=== PATIENT | male | born 1995 | race Caucasian/White ===

== ENCOUNTER 2018-02-24 12:46 | Inpatient (IN) | payer MEDICAID ==
[2018-02-24 13:16] LABS: PLATELET COUNT 211 10^3/uL (150-400)
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
[2018-02-24] MEDS ORDERED: LORazepam 0.5 MG TAB PO PRN (20:47)
[2018-02-24] MEDS ORDERED: MAGNESIUM HYDROXIDE 30 ML UDCUP PO PRN (20:47)
[2018-02-24] MEDS ORDERED: ACETAMINOPHEN 325 MG TAB PO PRN (20:47)
[2018-02-24] MEDS ORDERED: MAG HYDROX/AL HYDROX/SIMETH 30 ML UDCUP PO PRN (20:47)
[2018-02-24] MEDS ORDERED: OLANZapine 5 MG TAB PO PRN (20:48)
[2018-02-24] MEDS ORDERED: MELATONIN 3 MG TAB PO PRN (20:49)
[2018-02-24] MEDS: NICOTINE POLACRILEX 2 MG GUM B PRN (21:26)
[2018-02-25] MEDS: NICOTINE POLACRILEX 2 MG GUM B PRN ×2 (12:02→15:49)
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
[2018-02-25] MEDS: RISPERIDONE 1 MG ODT TAB SL SCH (20:10)
[2018-02-26 06:12] VITALS: BP 109/64
[2018-02-26] MEDS: NICOTINE POLACRILEX 2 MG GUM B PRN (12:17)
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
[2018-02-26] MEDS: RISPERIDONE 1 MG ODT TAB SL SCH (20:02)
[2018-02-27] MEDS: NICOTINE POLACRILEX 2 MG GUM B PRN ×3 (09:29→19:06)
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
[2018-02-27] MEDS: RISPERIDONE 1 MG ODT TAB SL SCH (20:16)
[2018-02-28] MEDS: NICOTINE POLACRILEX 2 MG GUM B PRN (08:36)
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
[2018-02-28] MEDS: RISPERIDONE 1 MG ODT TAB SL SCH (20:38)
[2018-03-01] MEDS: NICOTINE POLACRILEX 2 MG GUM B PRN ×2 (13:29→19:00)
[2018-03-01] MEDS: RISPERIDONE 1 MG ODT TAB SL SCH (20:37)
[2018-03-03] MEDS: RISPERIDONE 1 MG ODT TAB SL SCH ×2 (08:04→20:54)
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
--- NOTE | 2018-03-03 16:33 | SOAPPROG ---
SOAP Progress Note Assessment/Plan: Assessment: Plan: 03/03/18 16:32 Psychosis: Not improving. I have petitioned for COM. Will begin E-meds due to level of hostility and high potential for escalation and aggression. Pt is clearly gravely disabled as he is not aware of the nature or severity of his illness and is unable to consent for medications. He has placed others including myself in reasonable fear of harm. Subjective: LATE ENTRY FOR 03/01/18. THIS NOTE WAS PREVIOUSLY ENTERED INTO THE RECORD BUT WAS ERASED BY EMR MALFUNCTION. NOTE FOR 03/02/18 WAS HAND TYPED AND PHYSICAL COPY PLACED IN PAPER CHART. Pt seen, discussed with staff. Continues to avoid staff and fellow patients. Guarded and hostile when interacting with staff or myself. Unwilling to discuss treatment or medications with me today. Puts his fingers in his ears when I try to anyway. Hostility and volatility has placed others in reasonable fear of harm. Objective: Vital Signs Temp Pulse Resp BP Pulse Ox 36.3 C 78 14 109/64 98 02/26/18 06:00 02/26/18 06:00 02/26/18 06:00 02/26/18 06:00 02/26/18 06:00 MSE: Disheveled, guarded, hostile. Affect is constricted, angry. Mood is not stated. TP appears disorganized. Appears to respond to internal stimuli. - Time Spent With Patient Time Spent With Patient: 15" ICD10 Worksheet Patient Problems: Problems Problem Status Onset Psychosis Acute
[2018-03-03] MEDS ORDERED: HALOPERIDOL LACT 5 MG/ML INJ IM PRN (16:36)
[2018-03-03] MEDS ORDERED: LORazepam 2 MG/ML INJ IM PRN (16:36)
--- NOTE | 2018-03-03 16:36 | SOAPPROG ---
SOAP Progress Note Assessment/Plan: Assessment: Plan: 03/03/18 16:32 Psychosis: Not improving. I have petitioned for COM. Will begin E-meds due to level of hostility and high potential for escalation and aggression. Pt is clearly gravely disabled as he is not aware of the nature or severity of his illness and is unable to consent for medications. He has placed others including myself in reasonable fear of harm. 03/03/18 16:35 Psychosis: Remains severely ill. CC received report from pt's mother that he was previously on COM in [place] prior to fleeing the state. Will reorder E-meds today. Subjective: Pt seen, discussed with staff. Remains hostile and guarded. E-med order erased by JAIME jordan yesterday. Will reenter it today. Pt remains unwilling to discuss treatment inc: meds. He remains paranoid, internally focused and hostile in the milieu. Objective: Vital Signs Temp Pulse Resp BP Pulse Ox 36.3 C 78 14 109/64 98 02/26/18 06:00 02/26/18 06:00 02/26/18 06:00 02/26/18 06:00 02/26/18 06:00 - Time Spent With Patient Time Spent With Patient: 15" ICD10 Worksheet Patient Problems: Problems Problem Status Onset Psychosis Acute
[2018-03-03] MEDS: NICOTINE POLACRILEX 2 MG GUM B PRN (22:54)
[2018-03-04] MEDS: NICOTINE POLACRILEX 2 MG GUM B PRN ×3 (08:11→14:12)
[2018-03-04] MEDS ORDERED: HALOPERIDOL 5 MG TAB PO ONE (13:47)
[2018-03-04] MEDS ORDERED: LORazepam 1 MG TAB PO ONE (13:48)
[2018-03-04] MEDS ORDERED: diphenhydrAMINE 50 MG CAP PO ONE (13:48)
[2018-03-04] MEDS ORDERED: diphenhydrAMINE 25 MG CAP PO ONE (13:49)
[2018-03-04] MEDS ORDERED: LORazepam 1 MG TAB ONE (13:50)
--- NOTE | 2018-03-04 14:21 | ASMTBHDC ---
Notes Note: Notes: CC speaks with Valarie (client's case planner) at [phone]; cell: [phone] regarding client's current condition as well as confirming that we received her fax of his most recent medications, etc. CC noted that we did received her fax as well as supply any update on client's progress/lack of progress, etc. Valarie noted that "our doctor (client's doctor) here would like to speak to the attending doctor for client for coordination of care, etc." Spoke to client's doctor with [facility] and he agreed. CC provided Valarie with doctor's phone number, etc. CC will work with Valarie to help coordination client's return to [place], etc. CC provided all necessary contact information including email. CC requested clinet's PO name and number if available, etc. Waiting on a response. Client affect today labile and loud. Emergency meds ordered due to his disruptive behaviors, etc. Date Signed: 03/04/2018 02:20 PM Electronically Signed By:Kadeem Winchester
--- NOTE | 2018-03-04 16:29 | SOAPPROG ---
SOAP Progress Note Assessment/Plan: Assessment: Plan: 03/03/18 16:32 Psychosis: Not improving. I have petitioned for COM. Will begin E-meds due to level of hostility and high potential for escalation and aggression. Pt is clearly gravely disabled as he is not aware of the nature or severity of his illness and is unable to consent for medications. He has placed others including myself in reasonable fear of harm. 03/03/18 16:35 Psychosis: Remains severely ill. CC received report from pt's mother that he was previously on COM in [place] prior to fleeing the state. Will reorder E-meds today. 03/04/18 16:29 Psychosis: No change. Took one dose of Risperdal. Await COM hearing. Subjective: Pt seen, discussed with staff. Took Risperdal last night with E-med backup. He continues to refuse to talk to me accusing me of lying to him. Remains internally preoccupied, impulsive, irritable/hostile, paranoid. Good collateral information from treatment center in [place] re: previous court ordered treatments. Objective: Vital Signs Temp Pulse Resp BP Pulse Ox 36.3 C 78 14 109/64 98 02/26/18 06:00 02/26/18 06:00 02/26/18 06:00 02/26/18 06:00 02/26/18 06:00 - Time Spent With Patient Time Spent With Patient: 15" ICD10 Worksheet Patient Problems: Problems Problem Status Onset Psychosis Acute
[2018-03-04] MEDS: NICOTINE 14 MG/24 HR PATCH TD SCH (17:07)
[2018-03-04] MEDS: RISPERIDONE 1 MG ODT TAB SL SCH (19:57)
[2018-03-05] MEDS: NICOTINE 14 MG/24 HR PATCH TD SCH (08:39)
[2018-03-05] MEDS ORDERED: LORazepam 2 MG/ML INJ IM PRN (10:49)
[2018-03-05] MEDS ORDERED: HALOPERIDOL LACT 5 MG/ML INJ IM PRN ×2 (10:49)
[2018-03-05] MEDS ORDERED: LORazepam 1 MG TAB PO PRN (10:49)
[2018-03-05] MEDS ORDERED: HALOPERIDOL 10 MG TAB PO PRN (10:49)
[2018-03-05] MEDS ORDERED: diphenhydrAMINE 50 MG CAP PO PRN (10:57)
--- NOTE | 2018-03-05 17:46 | SOAPPROG ---
SOAP Progress Note Assessment/Plan: Assessment: Plan: 03/03/18 16:32 Psychosis: Not improving. I have petitioned for COM. Will begin E-meds due to level of hostility and high potential for escalation and aggression. Pt is clearly gravely disabled as he is not aware of the nature or severity of his illness and is unable to consent for medications. He has placed others including myself in reasonable fear of harm. 03/03/18 16:35 Psychosis: Remains severely ill. CC received report from pt's mother that he was previously on COM in [place] prior to fleeing the state. Will reorder E-meds today. 03/04/18 16:29 Psychosis: No change. Took one dose of Risperdal. Await COM hearing. 03/05/18 17:46 Psychosis: Remains psychotic, labile, isolating. I/J remain very poor, though compliant with meds in this setting. Will CCM, await COM hearing. Subjective: Pt seen, discussed with staff. Isolating in his room, unwilling to discuss treatment. Offers no c/o's. Compliant with meds. Objective: Vital Signs Temp Pulse Resp BP Pulse Ox 36.3 C 78 14 109/64 98 02/26/18 06:00 02/26/18 06:00 02/26/18 06:00 02/26/18 06:00 02/26/18 06:00 MSE: Poorly groomed, guarded, uncoop. Affect is currently neutral though remains labile. Mood is not described. TP is disorganized. TC reveals paranoid thoughts that the staff including myself are lying to him and "against " him. - Time Spent With Patient Time Spent With Patient: 15" ICD10 Worksheet Patient Problems: Problems Problem Status Onset Psychosis Acute
[2018-03-05] MEDS: NICOTINE POLACRILEX 2 MG GUM B PRN (19:32)
[2018-03-05] MEDS: RISPERIDONE 2 MG ODT TAB SL SCH (20:47)
[2018-03-06] MEDS: NICOTINE 14 MG/24 HR PATCH TD SCH (13:16)
[2018-03-06] MEDS: NICOTINE POLACRILEX 2 MG GUM B PRN (13:16)
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
[2018-03-06] MEDS: RISPERIDONE 2 MG ODT TAB SL SCH (19:52)
[2018-03-07] MEDS: NICOTINE 14 MG/24 HR PATCH TD SCH (09:46)
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
[2018-03-07] MEDS: NICOTINE POLACRILEX 2 MG GUM B PRN ×3 (14:50→19:11)
--- NOTE | 2018-03-07 15:02 | ASMTBHDC ---
Notes Note: Notes: Patient is spending most of the day in his room in bed. He is taking his medications and he is not going to groups. He slept 6 hours last night. He is not engaging with others. Date Signed: 03/07/2018 03:02 PM Electronically Signed By:Bettie Cool
[2018-03-07] MEDS: RISPERIDONE 2 MG ODT TAB SL SCH (20:14)
[2018-03-08] MEDS: NICOTINE 14 MG/24 HR PATCH TD SCH (11:35)
--- NOTE | 2018-03-08 16:51 | SOAPPROG ---
SOAP Progress Note Assessment/Plan: Assessment: Plan: 03/03/18 16:32 Psychosis: Not improving. I have petitioned for COM. Will begin E-meds due to level of hostility and high potential for escalation and aggression. Pt is clearly gravely disabled as he is not aware of the nature or severity of his illness and is unable to consent for medications. He has placed others including myself in reasonable fear of harm. 03/03/18 16:35 Psychosis: Remains severely ill. CC received report from pt's mother that he was previously on COM in [place] prior to fleeing the state. Will reorder E-meds today. 03/04/18 16:29 Psychosis: No change. Took one dose of Risperdal. Await COM hearing. 03/05/18 17:46 Psychosis: Remains psychotic, labile, isolating. I/J remain very poor, though compliant with meds in this setting. Will CCM, await COM hearing. 03/08/18 16:50 Psychosis: Improving with Risperdal. Will increase to 3mg, monitor. Continue ISB precautions, though may be able to life AP as he has not exhibited aggression. Continue d/c planning. Subjective: Pt seen, discussed with staff. Reports feeling "a lot better." Engaging and able to carry on a conversation about treatment and d/c plans. He struggles at times with internal distraction/derailment. He continues to state he wants to go to [place] after d/c. Events of WE noted inc: sexually inappropriate statements. Discussed this with patient and he demonstrates minimal insight though states he will "stop that." Objective: Vital Signs Temp Pulse Resp BP Pulse Ox 36.3 C 78 14 109/64 98 02/26/18 06:00 02/26/18 06:00 02/26/18 06:00 02/26/18 06:00 02/26/18 06:00 MSE: out in milieu watching TV. Activity is normal, speech is soft, slow, delayed. Affect is blunted, stable. Mood is "good." TP is generally linear, though he continues to derail. He will refocus if interrupted. TC reveals no mention of paranoid thoughts. - Time Spent With Patient Time Spent With Patient: 25" ICD10 Worksheet Patient Problems: Problems Problem Status Onset Psychosis Acute
[2018-03-08] MEDS: NICOTINE POLACRILEX 2 MG GUM B PRN ×2 (18:15→21:20)
[2018-03-08] MEDS: RISPERIDONE 2 MG ODT TAB SL SCH (21:07)
[2018-03-09] MEDS: NICOTINE 14 MG/24 HR PATCH TD SCH (08:45)
[2018-03-09] MEDS: NICOTINE POLACRILEX 2 MG GUM B PRN ×4 (14:52→21:00)
--- NOTE | 2018-03-09 15:09 | SOAPPROG ---
SOAP Progress Note Assessment/Plan: Assessment: Plan: 03/03/18 16:32 Psychosis: Not improving. I have petitioned for COM. Will begin E-meds due to level of hostility and high potential for escalation and aggression. Pt is clearly gravely disabled as he is not aware of the nature or severity of his illness and is unable to consent for medications. He has placed others including myself in reasonable fear of harm. 03/03/18 16:35 Psychosis: Remains severely ill. CC received report from pt's mother that he was previously on COM in [place] prior to fleeing the state. Will reorder E-meds today. 03/04/18 16:29 Psychosis: No change. Took one dose of Risperdal. Await COM hearing. 03/05/18 17:46 Psychosis: Remains psychotic, labile, isolating. I/J remain very poor, though compliant with meds in this setting. Will CCM, await COM hearing. 03/08/18 16:50 Psychosis: Improving with Risperdal. Will increase to 3mg, monitor. Continue ISB precautions, though may be able to life AP as he has not exhibited aggression. Continue d/c planning. 03/09/18 15:08 Psychosis: Unchanged. CCM. Continue d/c planning. Subjective: Pt seen, discussed with staff. Continues to struggle with clarity of thoughts/ disorganization. He is motivated to leave the hospital but continues to insist he has a place to live in [place] while his family insists he has never been there before. CC is working to clarify this. Remains generally hypersexual, though bx's are in control. Objective: Vital Signs Temp Pulse Resp BP Pulse Ox 36.3 C 78 14 109/64 98 02/26/18 06:00 02/26/18 06:00 02/26/18 06:00 02/26/18 06:00 02/26/18 06:00 MSE: Calm, almost sedate. Affect is blunted, stable. Mood is "good." TP generally linear. TC reveals grandiose and paranoid thoughts, RIS. - Time Spent With Patient Time Spent With Patient: 15" ICD10 Worksheet Patient Problems: Problems Problem Status Onset Psychosis Acute
--- NOTE | 2018-03-09 15:35 | ASMTBHDC ---
Notes Note: Notes: GINA spoke with Darling from [facility] ([id number]#[phone], F#[phone]); she requested written documentation of the patient's stay in the hospital for her records. She reported that a warrant for the patient's arrest had been put in place because he was not supposed to leave [place] without permission from the court. She stated that his offense was currently not extraditable. GINA also spoke with the patient's mother, Jessica, updating her per the discharge plan. The patient is requesting to be discharged to a homeless custodial. He is refusing to return to [place]. He would like to go to [place] and is unable to confirm an friend, family member, phone number, or address in [place] or [place]. Jessica reported that her daughter could come to [place] in 10 days but that she was unable to leave [place] because of a new job that she will lose if she leaves. Date Signed: 03/09/2018 03:34 PM Electronically Signed By:Cherie Hayward
[2018-03-09] MEDS: RISPERIDONE 2 MG ODT TAB SL SCH (21:20)
[2018-03-10] MEDS: NICOTINE 14 MG/24 HR PATCH TD SCH (10:23)
[2018-03-10] MEDS: NICOTINE POLACRILEX 2 MG GUM B PRN (13:46)
--- NOTE | 2018-03-10 15:31 | SOAPPROG ---
SOAP Progress Note Assessment/Plan: Assessment: Plan: 03/03/18 16:32 Psychosis: Not improving. I have petitioned for COM. Will begin E-meds due to level of hostility and high potential for escalation and aggression. Pt is clearly gravely disabled as he is not aware of the nature or severity of his illness and is unable to consent for medications. He has placed others including myself in reasonable fear of harm. 03/03/18 16:35 Psychosis: Remains severely ill. CC received report from pt's mother that he was previously on COM in [place] prior to fleeing the state. Will reorder E-meds today. 03/04/18 16:29 Psychosis: No change. Took one dose of Risperdal. Await COM hearing. 03/05/18 17:46 Psychosis: Remains psychotic, labile, isolating. I/J remain very poor, though compliant with meds in this setting. Will CCM, await COM hearing. 03/08/18 16:50 Psychosis: Improving with Risperdal. Will increase to 3mg, monitor. Continue ISB precautions, though may be able to life AP as he has not exhibited aggression. Continue d/c planning. 03/09/18 15:08 Psychosis: Unchanged. CCM. Continue d/c planning. 03/10/18 15:31 Psychosis: Calmer today. Compliant with meds. CCM. Continue d/c planning. He is insisting on being homeless at this point. Will attempt to provide him with resources. Subjective: Pt seen, discussed with staff. Remains focused on d/c but refuses to go to [place]. Unable to give specific plan for where he will stay such as address, etc. Behaviors are improved, though continues to masturbate loudly in his room. Requests radio. Objective: Vital Signs Temp Pulse Resp BP Pulse Ox 36.3 C 78 14 109/64 98 02/26/18 06:00 02/26/18 06:00 02/26/18 06:00 02/26/18 06:00 02/26/18 06:00 MSE: Calm, coop. Affect is blunted, stable, approp. Mood is "good." TP linear at times, some tangentiality. TC reveals no mention of delusions. Denies SI/HI/. - Time Spent With Patient Time Spent With Patient: 25" ICD10 Worksheet Patient Problems: Problems Problem Status Onset Psychosis Acute
[2018-03-10] MEDS: RISPERIDONE 1 MG ODT TAB SL SCH (19:33)
[2018-03-11] MEDS: NICOTINE 14 MG/24 HR PATCH TD SCH (11:07)
--- NOTE | 2018-03-11 14:49 | ASMTBHDC ---
Notes Note: Notes: CC speaks to sister and MOC of client at length, including having client participate in phone call; however, he declined. CC explained that client would not benefit from being in-paitent for additional 10 plus days (until they can arrive to [place] from [facility]). Spoke to [place] team and client is slated to discharge early next week, etc. CC created and sent referral to [facility] for out-paitent services and treatment, etc. Plan is for client to discharge early next week with resources for local chcf and [facility] intake appt, etc. MOC/sister who was provided chcf name, location and number will drive to [place] and find client themselves. Resources for client to follow up with include: Follow up with: [facility] [address] Intake Appt: ThursdayMarch 17 at 2:30pm with Maryjane at the [facility] Other Community Resources: [facility] [address] [place] [address] [facility] [address] [place], [place] [id number] Must coordinate entry prior to discharge [facility] [address] [place] [address] Date Signed: 03/11/2018 02:49 PM Electronically Signed By:Kadeem Winchester
[2018-03-11] MEDS: NICOTINE POLACRILEX 2 MG GUM B PRN ×2 (15:52→19:59)
--- NOTE | 2018-03-11 16:29 | SOAPPROG ---
SOAP Progress Note Assessment/Plan: Assessment: Plan: 03/03/18 16:32 Psychosis: Not improving. I have petitioned for COM. Will begin E-meds due to level of hostility and high potential for escalation and aggression. Pt is clearly gravely disabled as he is not aware of the nature or severity of his illness and is unable to consent for medications. He has placed others including myself in reasonable fear of harm. 03/03/18 16:35 Psychosis: Remains severely ill. CC received report from pt's mother that he was previously on COM in [place] prior to fleeing the state. Will reorder E-meds today. 03/04/18 16:29 Psychosis: No change. Took one dose of Risperdal. Await COM hearing. 03/05/18 17:46 Psychosis: Remains psychotic, labile, isolating. I/J remain very poor, though compliant with meds in this setting. Will CCM, await COM hearing. 03/08/18 16:50 Psychosis: Improving with Risperdal. Will increase to 3mg, monitor. Continue ISB precautions, though may be able to life AP as he has not exhibited aggression. Continue d/c planning. 03/09/18 15:08 Psychosis: Unchanged. CCM. Continue d/c planning. 03/10/18 15:31 Psychosis: Calmer today. Compliant with meds. CCM. Continue d/c planning. He is insisting on being homeless at this point. Will attempt to provide him with resources. 03/11/18 16:29 Psychosis: No change in clinical status. Will attempt to connect patient to his family for support. Continue d/c planning. Subjective: Pt seen numerous times today. Perseverating on need to d/c. Unwilling to make contact with family. I presented this as a condition of d/c in order to allow his primary support group to know he is safe. He continues to refuse. Remains compliant with meds and restrictions. No aggression. Objective: Vital Signs Temp Pulse Resp BP Pulse Ox 36.3 C 78 14 109/64 98 02/26/18 06:00 02/26/18 06:00 02/26/18 06:00 02/26/18 06:00 02/26/18 06:00 MSE: Generally calm, cooperative, though requires redirection after accosting me more than ten times. Affect is blunted, stable. Mood is "good." TP linear , though abbreviated, perseverative. TC reveals some paranoid thoughts, especially about his family and continued poor insight. - Time Spent With Patient Time Spent With Patient: 25" ICD10 Worksheet Patient Problems: Problems Problem Status Onset Psychosis Acute
[2018-03-11] MEDS: RISPERIDONE 1 MG ODT TAB SL SCH (19:59)
[2018-03-12] MEDS: NICOTINE 14 MG/24 HR PATCH TD SCH (10:39)
[2018-03-12] MEDS: NICOTINE POLACRILEX 2 MG GUM B PRN (11:15)
--- NOTE | 2018-03-12 18:43 | BDS ---
[f rep st] BEHAVIORAL HEALTH DISCHARGE SUMMARY REASON FOR ADMISSION: Patient is a 23-year-old male with a history of apparent chronic psychosis. Vance guzman was homeless and had been staying for approximately a month in the [place] area. He was brought in by police after getting into an argument with a wheelchair van driver when he was trying to cross the street and th en brandishing an ax and chopping on a tree. He appeared disorganized and paranoid and was brought i n for further evaluation. Full description of the events preceding admission can be found in his adm ission history dated 02/25/2018. ADMITTING DIAGNOSES: 1. Acute psychotic disorder. 2. 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 3. 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 4. Homelessness. 5. Recent aggression. ADMISSION PHYSICAL EXAMINATION: Performed by Dr. Nito Masterson was unremarkable. ADMISSION LABORATORY: CBC showed an elevated white count at 9.81, otherwise normal. Serum chemistri es were normal. Urine drug screen was positive for marijuana. HOSPITAL COURSE: The patient was admitted to the behavioral health services inpatient unit on an M-1 hold. He was very disorganized, disheveled, demonstrating significant thought blocking and internal preoccupation. It was difficult to get much of a history from him as he struggled to interact meani ngfully. We were able to obtain some collateral information apparently from his mother who called [facility] and told us that he was on court-ordered medications in [place] and has a diagnosis of schizop hrenia. He had been away from home for several months, traveling, and previously had been living wit h his brother in [place]. He had also been on probation for stealing cell phones and had a warrant o in for his arrest in [place]. The patient was unable to acknowledge these things at first, but was a greeable to medication treatment with Risperdal. We began the Risperdal at 1 mg and then 2 mg at h.s ., which he tolerated well. Ultimately, the Risperdal was titrated to 3 mg at h.s., which he also to lerated well. His psychosis improved, and he became much more fluent and spontaneous. Patient's hospitalization was complicated by some hypersexuality. This seemed to be rather primitive in that he would identify a female he thought was attractive and ask if he could have sex with her. At no time did he act on any of these urges, though he was placed on inappropriate sexual behavioral precautions and segregated to one side of the unit away from the females. He was observed to mastur judy frequently and loudly and preferred to have the radio in his room to cover some of these noises. The behaviors persisted throughout his admission. Patient did gradually improve, and his behaviors calmed. His thought blocking improved significantly , and he was able to participate in treatment and discharge planning. Unfortunately, he was adamant that he would not return to [place], likely because of his legal and mental health issues, and did no t want his family involved in his care. His sister contacted the sub acute care nurse and indicated that she would come to [place] in 2 weeks in order to help him get settled, but could not come sooner th an that. I petitioned the court for court-ordered medications prior to the patient's compliance with medications and then rescinded this after he was consistently compliant with oral medications. The sub acute care nurse was able to make arrangements with him to follow up with [facility], and he insisted on remaining homeless. Offers were made to help him travel back to [place] or to wait u ntil his sister was able to come and/or help the sister travel more quickly to [place], but he decli sheri all of these. CONDITION AT DISCHARGE: Stable. His affect was blunted, but stable, and he was displaying no eviden ce of hostility or aggression. He was compliant with his medications and able to reasonably interact with others. DISCHARGE MEDICATIONS: Risperdal 3 mg p.o. at bedtime. DISPOSITION: Patient left the hospital of his own accord with resources for outpatient appointments and the homeless retirement. I confirmed the patient was given these instructions at the time of discharge. Patient was placed on a short-term certification at the expiration of his M-1 hold. Short-term certi fication was discontinued at time of discharge. Patient's attitude was positive at time of discharge. Patient did not have advance directives on selene e, but was a full code throughout his stay. There were no pending labs or studies at the time of his discharge. /[id number]/MODL
== END 2018-03-12 14:15 | disposition home or self-care (01) | DRG 776 ==
LOC: BBEH 20:20
PROVIDERS: ADMIT Psychiatry & Neurology Psychiatry; ATTEND Psychiatry & Neurology Psychiatry
DX: F12.99 Cannabis use, unspecified with unspecified cannabis-induced disorder (principal); F17.200 Nicotine dependence, unspecified, uncomplicated; F20.9 Schizophrenia, unspecified; Z59.0 Homelessness
CPT/HCPCS: 80305; G0480